=== PATIENT | male | born 1960 | race Caucasian/White ===

== ENCOUNTER 2021-01-08 07:47 | Day surgery (SDC) | payer OTHER ==
[~2021-01-08] VITALS: Ht 188 cm; Wt 102.6 kg
[2021-01-08 08:25] VITALS: BP 131/81
[2021-01-08] MEDS ORDERED: LOSA25TA25 PO (08:39)
[2021-01-08] MEDS ORDERED: HYDR12.517 PO (08:39)
[2021-01-08] MEDS ORDERED: FLUT9.9S INFIL (08:39)
[2021-01-08] MEDS ORDERED: ATOR20TA86 PO (08:39)
[2021-01-08] MEDS ORDERED: LACTATED RINGERS 1,000 ML IV SCH (09:00)
[2021-01-08] MEDS ORDERED: CHLORHEXIDINE 15 ML UDC PO ONE (09:00)
[2021-01-08] MEDS ORDERED: MIDAZOLAM 1 MG/ML, 2ML ONE (09:08)
[2021-01-08] MEDS ORDERED: FENTANYL PF 250 MCG/5ML ONE (09:08)
[2021-01-08 09:29] LABS: BASOPHILS % (AUTO) 1 % (0-1); EOSINOPHILS % (AUTO) 2 % (1-7); LYMPHOCYTES % (AUTO) 31 % (22-44); MEAN CORPUSCULAR HEMOGLOBIN 31.1 pg (27.5-34.5); MEAN PLATELET VOLUME 8.6 fL (7.4-10.4); MONOCYTES % (AUTO) 9 % (2-9); NEUTROPHILS % (AUTO) 57 % (42-75); PLATELET COUNT 190 x10^3/uL (130-400); RED BLOOD COUNT 4.84 x10^6/uL (4.38-5.82); RED CELL DISTRIBUTION WIDTH 13.8 % (9.4-14.8)
[2021-01-08] MEDS ORDERED: LIDOCAINE 1%-EPI 1:100K, 30ML INFIL ONE (10:04)
[2021-01-08] MEDS ORDERED: FLUORESCEIN SODIUM 500 MG/5 ML IV ONE (10:05)
[2021-01-08] MEDS ORDERED: EPINEPHRINE TOPICAL SOLN 1 MG/ML, 30ML TP ONE (10:07)
[2021-01-08] MEDS ORDERED: HYDROmorphone 1 MG/ML, 1ML INJ IVPush PRN (11:30)
[2021-01-08] MEDS ORDERED: LABETALOL 5MG/ML, 20ML IV PRN (11:30)
[2021-01-08] MEDS ORDERED: OXYcodone 5 MG/5 ML ORAL.SOL UDC PO PRN (11:30)
[2021-01-08] MEDS ORDERED: LORazepam 2 MG/ML, 1ML IVPush PRN (11:30)
[2021-01-08] MEDS ORDERED: hydrALAzine 20 MG/ML, 1ML IV PRN (11:30)
[2021-01-08] MEDS ORDERED: METHOCARBAMOL 1,000 MG in DEXTROSE 5% 100 ML IV PRN (11:30)
[2021-01-08] MEDS ORDERED: ACETAMINOPHEN 325 MG TABLET PO PRN (11:30)
[2021-01-08] MEDS ORDERED: PROMETHAZINE 25 MG/ML, 1ML IVPush PRN (11:30)
[2021-01-08] MEDS ORDERED: PROMETHAZINE 25 MG SUPP PR PRN (11:30)
[2021-01-08] MEDS ORDERED: MEPERIDINE/PF 25MG/0.5ML IVPush PRN (11:30)
[2021-01-08] MEDS ORDERED: FENTANYL PF 100 MCG/2ML IV PRN (11:30)
[2021-01-08] MEDS ORDERED: ALBUTEROL SULFATE 2.5 MG/3 ML NPPB PRN (11:30)
[2021-01-08] MEDS ORDERED: METOPROLOL 1 MG/ML, 5ML IV PRN (11:30)
[2021-01-08] MEDS ORDERED: ONDANSETRON 2MG/ML, 2ML IVPush PRN (11:30)
[2021-01-08] MEDS ORDERED: CEFAZOLIN 1,000 MG ONE (11:37)
[2021-01-08] MEDS ORDERED: LIDOCAINE-MPF 2% ,5ML ONE (11:37)
[2021-01-08] MEDS ORDERED: NEOSTIGMINE 1 MG/ML, 10ML ONE (11:37)
[2021-01-08] MEDS ORDERED: ONDANSETRON 2MG/ML, 2ML ONE (11:37)
[2021-01-08] MEDS ORDERED: SUCCINYLCHOLINE 20 MG/ML, 10ML ONE (11:37)
[2021-01-08] MEDS ORDERED: GLYCOPYRROLATE 0.2MG/1ML, 5ML ONE (11:37)
[2021-01-08] MEDS ORDERED: DEXAMETHASONE 4 MG/ML, 1ML ONE (11:37)
[2021-01-08] MEDS ORDERED: ROCURONIUM 10MG/ML,5ML ONE (11:37)
[2021-01-08] MEDS ORDERED: PROPOFOL 10 MG/ML, 20ML ONE (11:37)
== END 2021-01-08 13:15 | disposition home or self-care (01) ==
LOC: OUT 07:47
PROVIDERS: ATTEND Otolaryngology
DX: J32.0 Chronic maxillary sinusitis (principal); J32.2 Chronic ethmoidal sinusitis; J34.1 Cyst and mucocele of nose and nasal sinus; J34.2 Deviated nasal septum; I10 Essential (primary) hypertension; Z79.899 Other long term (current) drug therapy
CPT/HCPCS: 30520; 31253; 31256; 31267; 36415; 85025; 88304; 93005; J0690; J1100; J2250; J2405; J2704; J2710; J3010; J7120; J0330

== ENCOUNTER 2021-01-22 08:16 | Day surgery (SDC) | payer OTHER ==
[~2021-01-22 08:16] MED LIST: ATOR20TA86 PO; FLUT9.9S INFIL; HYDR12.517 PO; LOSA25TA25 PO
[2021-01-22 09:11] VITALS: BP 124/80
[2021-01-22] MEDS ORDERED: LIDOCAINE IVPush ONE (09:28)
== END 2021-01-22 09:40 | disposition home or self-care (01) ==
LOC: OUT 08:16
PROVIDERS: ATTEND Otolaryngology
DX: J32.2 Chronic ethmoidal sinusitis (principal); Z20.822 Contact with and (suspected) exposure to COVID-19
CPT/HCPCS: 31237; 87635; J2001